=== PATIENT | female | born 1945 | race Caucasian/White ===

== ENCOUNTER 2023-06-01 06:00 | Emergency (ER) | payer OTHER ==
[~2023-06-01] VITALS: Ht 162.6 cm; Wt 54.4 kg
[2023-06-01 06:07] VITALS: BP 138/62; PULSE 90; RESP 16; TEMP 97.6; O2SAT 98
[2023-06-01 08:43] VITALS: O2SAT 96
[2023-06-01 11:44] VITALS: O2SAT 96
[2023-06-01 12:45] VITALS: BP 130/78; PULSE 80; RESP 19; TEMP 98; O2SAT 97
== END 2023-06-01 12:45 | disposition home or self-care (01) ==
LOC: MED 06:00
DX: S80.11XA Contusion of right lower leg, initial encounter (principal); E11.9 Type 2 diabetes mellitus without complications; I10 Essential (primary) hypertension; Z88.0 Allergy status to penicillin; J44.9 Chronic obstructive pulmonary disease, unspecified; W18.39XA Other fall on same level, initial encounter; Y92.89 Other specified places as the place of occurrence of the external cause; Y93.89 Activity, other specified; Y99.8 Other external cause status
CPT/HCPCS: 73562; 73590; 99285; Q0092